=== PATIENT | female | born 1995 | race African-American/Black ===

== ENCOUNTER 2016-09-02 16:38 | Emergency (ER) | payer OTHER ==
--- NOTE | 2016-09-02 19:19 | RAD ---
INDICATION: Right hand injury COMPARISON: None TECHNIQUE: AP, lateral, and oblique views were obtained. FINDINGS: The bony structures, joint spaces, and soft tissues are normal for age. IMPRESSION: NEGATIVE EXAMINATION.
--- NOTE | 2016-09-02 19:22 | ED ---
Upper Extremity Pain - HPI Summary HPI Summary: 21 female presents complaining of right hand/thumb pain after an injury at work yesterday 09/01/16. Patient works at [employer] and states she was lifting a heavy box when she felt something in her hand pop. She tried applying a brace and took one ibuprofen yesterday with some relief. Admits to limited ROM, swelling and bruising. She also tried applying heat with a heating pad that ended up burning her right palmar wrist about 2cm wide and 2cm long. A blister is present. The heat does help with pain. Movement of her right thumb makes the pain worse. No wrist or elbow complaints at this time. Denies numbness/ tingling. Did not fall, hit her head, lose consciousness and does not complain of any neck or back pain. - History of Current Complaint Chief Complaint: EDExtremityUpper Stated Complaint: RT HAND INJURY Time Seen by Provider: 09/02/16 18:21 Hx Obtained From: Patient Mechanism Of Injury: Twisted - while lifting a heavy box of items at work Onset/Duration: Started Days Ago - yesterday 09/01/16 Timing: Constant Severity Initially: Mild Severity Currently: Moderate Pain Location: Hand - thenar eminence, Finger - right thumb Character: Aching, Throbbing Aggravating Factor(s): Movement, Flexion, Extension, Abduction, Adduction Alleviating Factor(s): Rest, Compression, Heat Associated Signs & Symptoms: Positive: Swelling, Bruising Related History: Dominant Hand Right - Allergies/Home Medications Allergies/Adverse Reactions: Allergies Allergy/AdvReac Type Severity Reaction Status Date / Time No Known Allergies Allergy Verified 05/28/12 16:46 PMH/Surg Hx/FS Hx/Imm Hx Endocrine/Hematology History: Denies: Hx Anticoagulant Therapy, Hx Anemia Cardiovascular History: Denies: Other Cardiovascular Problems/Disorders - DENIES Respiratory History: Denies: Other Respiratory Problems/Disorders - DENIES - Surgical History Surgery Procedure, Year, and Place: none Infectious Disease History: No Infectious Disease History: Denies: Traveled Outside the [place] in Last 30 Days - Family History Known Family History: Positive: Diabetes - Social History Occupation: Employed Full-time Alcohol Use: None Substance Use Type: Reports: None Smoking Status (MU): Never Smoked Tobacco Review of Systems Constitutional: Negative Eyes: Negative ENT: Negative Cardiovascular: Negative Respiratory: Negative Gastrointestinal: Negative Positive: Arthralgia, Myalgia, Decreased ROM, Edema - right thenar eminence Positive: Bruising - right thenar eminence Neurological: Negative Psychological: Normal All Other Systems Reviewed And Are Negative: Yes Physical Exam Triage Information Reviewed: Yes Vital Signs On Initial Exam: Initial Vitals Temp Pulse Resp BP Pulse Ox 98.5 F 115 18 153/74 100 09/02/16 17:14 09/02/16 17:14 09/02/16 17:14 09/02/16 17:14 09/02/16 17:14 tachy and elevate blood pressure noted Vital Signs Reviewed: Yes Appearance: Positive: Well-Appearing, No Pain Distress, Well-Nourished Skin: Positive: Warm, Skin Color Reflects Adequate Perfusion - < 2 secon cap refill, Dry Head/Face: Positive: Normal Head/Face Inspection Eyes: Positive: Conjunctiva Clear ENT: Positive: Hearing grossly normal Neck: Positive: Supple, Nontender, No Lymphadenopathy Respiratory/Lung Sounds: Positive: Clear to Auscultation, Breath Sounds Present , Subcutaneous Emphysema Cardiovascular: Positive: RRR, Pulses are Symmetrical in both Upper and Lower Extremities - 2+ radial b/l Abdomen Description: Positive: Nontender Musculoskeletal: Positive: Limited @ - ROM of right thumb due to pain however able to flex, extend and abduct/adduct. no crepitus, step-off or obvious deformity noted. right wrist and digits 2-5 normal. skin and sensation intact., Pain @ - right thenar eminence on palpation, radiating up right thumb, Edema Right - thenar eminence with slight eccymosis Neurological: Positive: Normal, Sensory/Motor Intact, Alert, Oriented to Person Place, Time, CN Intact II-III, Reflexes Intact, NV Bundle Intact Distally, Normal Gait Psychiatric: Positive: Normal Diagnostics - Vital Signs Vital Signs Temp Pulse Resp BP Pulse Ox 09/02/16 17:14 98.5 F 115 18 153/74 100 - Laboratory Lab Statement: Any lab studies that have been ordered have been reviewed, and results considered in the medical decision making process. - Radiology right hand x-ray Xray Interpretation: No Acute Changes - NEGATIVE EXAMINATION. Radiology Interpretation Completed By: Radiologist Course/Dx - Course Course Of Treatment: x-ray was ordered to rule out fracture and was negative. patient will be given ibuprofen to take for pain and inflammation and told to ice and rest the area. out of work. follow-up with PCP or orthopedics for presistant or worsening symptoms. jack bandage applied for pressure and support. already has thumb spica brace she was told she can wear as needed - Diagnoses Differential Diagnosis/HQI/PQRI: Positive: Arthritis, Burn, Contusion, Fracture (Closed), Hematoma, Strain, Sprain Provider Diagnoses: Sprain of hand, thumb, right, Superficial burn of wrist Discharge - Discharge Plan Condition: Stable Disposition: HOME Prescriptions: Ibuprofen TAB* [Motrin TAB* 600 MG] 600 mg PO Q8H PRN #15 tab PRN Reason: Pain Patient Education Materials: Finger Sprain (ED), Tendon Rupture (ED), Superficial Burn (ED) Forms: *Work Release Referrals: [facility] [place] [facility] [place]] Jaymie Marshall MD [Medical Doctor] - Additional Instructions: Take medication as prescribed to help with pain and inflammation. Rest the thumb and ice multiple times daily. Refrain from physical activity that includes using your right hand. Use jack wrap as needed for support. Do not get it wet. Follow-up with orthopedics for further evaluation and imaging. If symptoms worsen and you are unable to feel or move your hand please seek medical attention promptly. Refrain from using heating pad. As for minor burn, use OTC Aloe Vera and cool compresses. Do not pop blister. Let burn heal on its own. Addendum entered and electronically signed by Manasa Brown PA 09/03/16 13: 50: ED Addendum Addendum: patient is not , she is abstinent. vitals were re-checked and back in normal ranges. told to talk to PCP about high blood pressure.
[2016-09-02 20:29] VITALS: BP 159/71
== END 2016-09-02 20:26 | disposition home or self-care (01) ==
LOC: ED 16:38
DX: S63.601A Unspecified sprain of right thumb, initial encounter (principal); X58.XXXA Exposure to other specified factors, initial encounter; Y93.9 Activity, unspecified; Y92.9 Unspecified place or not applicable; Y99.9 Unspecified external cause status; T23.071A Burn of unspecified degree of right wrist, initial encounter; T79.9XXA Unspecified early complication of trauma, initial encounter; X08.8XXA Exposure to other specified smoke, fire and flames, initial encounter
CPT/HCPCS: 99281

== ENCOUNTER 2016-10-22 12:55 | Emergency (ER) | payer MEDICAID ==
[2016-10-22 15:03] VITALS: BP 137/86
--- NOTE | 2016-10-22 15:09 | ED ---
Carl Reyes Erika, scribed for Carlota Whyte MD on 10/22/16 at 1457 . Dizziness - HPI Summary HPI Summary: Patient is a 21-year-old female presenting to the ED with a CC of dizziness. Patient reports that she her left ear felt clogged about 4 weeks ago, and improved after a few days. Patient also notes nasal congestion at that time, which has resolved. A week after that, patient developed a spinning dizziness when she turns her head to the left. Dizziness lasts a few minutes and then resolves. Patient denies other symptoms including dental pain, double vision, difficulty swallowing, speech impairment, and focal neurological deficits. She denies similar symptoms in the past. Hx HTN - has never been on medication. FHx diabetes, HTN. Patient does not have a PCP. She works, lives alone, and does not smoke, drink, or use illicit drugs. - History Of Current Complaint Chief Complaint: EDDizziness Stated Complaint: LT EAR PAIN/DIZZY Time Seen by Provider: 10/22/16 13:43 Hx Obtained From: Patient Onset/Duration: Still Present Timing: Constant - whenever moves head to the left Severity Currently: Moderate Character: Room Spinning Aggravating Factor(s): Change In Head Position - to the left Alleviating Factor(s): Rest Associated Signs And Symptoms: Positive: Negative. Negative: Visual Changes, Inability to Walk, Slurred Speech - Allergies/Home Medications Allergies/Adverse Reactions: Allergies Allergy/AdvReac Type Severity Reaction Status Date / Time No Known Allergies Allergy Verified 10/22/16 13:01 PMH/Surg Hx/FS Hx/Imm Hx Endocrine/Hematology History: Denies: Hx Anticoagulant Therapy, Hx Anemia Cardiovascular History: Reports: Hx Hypertension - No medication Denies: Other Cardiovascular Problems/Disorders - DENIES Respiratory History: Denies: Other Respiratory Problems/Disorders - Surgical History Surgery Procedure, Year, and Place: none Infectious Disease History: No Infectious Disease History: Denies: Traveled Outside the [place] in Last 30 Days - Family History Known Family History: Positive: Hypertension, Diabetes - Social History Occupation: Employed Full-time Lives: Alone Alcohol Use: None Hx Substance Use: No Substance Use Type: Reports: None Hx Tobacco Use: No Smoking Status (MU): Never Smoked Tobacco Review of Systems Negative: Fever Negative: Blurred Vision Negative: Dental Pain Neurological: Other - dizziness Negative: Weakness, Slurred Speech All Other Systems Reviewed And Are Negative: Yes Physical Exam Triage Information Reviewed: Yes Vital Signs On Initial Exam: Initial Vitals Temp Pulse Resp BP Pulse Ox 97.5 F 97 16 155/99 100 10/22/16 12:57 10/22/16 12:57 10/22/16 12:57 10/22/16 12:57 10/22/16 12:57 Vital Signs Reviewed: Yes Appearance: Positive: Well-Appearing, No Pain Distress Skin: Positive: Warm, Skin Color Reflects Adequate Perfusion, Dry Eyes: Positive: EOMI, PEREZ ENT: Positive: Pharynx normal, TMs normal Neck: Positive: Supple, Nontender Respiratory/Lung Sounds: Positive: Clear to Auscultation, Breath Sounds Present. Negative: Rales, Rhonchi, Wheezes Cardiovascular: Positive: RRR, Other - No gallops. Negative: Murmur, Rub Abdomen Description: Positive: Nontender, Soft, Other: - No rebound. Negative: Distended, Guarding Bowel Sounds: Positive: Present Musculoskeletal: Positive: Other - DON. Negative: Edema Left, Edema Right Neurological: Positive: Sensory/Motor Intact, Alert, Oriented to Person Place, Time, Other - CN II-XII intact. Normal finger to nose. No nystagmus. No double vision Psychiatric: Positive: Affect/Mood Appropriate Diagnostics - Vital Signs Vital Signs Temp Pulse Resp BP Pulse Ox 10/22/16 13:01 97.5 F 94 16 156/99 100 10/22/16 12:57 97.5 F 97 16 155/99 100 - Laboratory Lab Statement: Any lab studies that have been ordered have been reviewed, and results considered in the medical decision making process. Dizzy Course/Dx - Course Course Of Treatment: 21 yo with left ear fullness /discomfort for a few days 2- 3 weeks ago that resolved with subsequent vertiginous symptoms that started 1 week ago only when she turns her head to the left side, she does not have hearing loss, difficulty swallowing, no double vision, sxms last a few minutes. Her exam is normal no issue with finger to nose or nystagmus on exam. the plan is to send her home with the diagnosis of vertigo - Diagnoses Provider Diagnoses: Vestibular neuronitis, left ear Discharge - Discharge Plan Condition: Stable Disposition: HOME Prescriptions: Meclizine TAB* [Antivert 12.5 TAB*] 25 mg PO TID PRN #20 tab PRN Reason: Vertigo Patient Education Materials: Labyrinthitis (ED) Referrals: [facility] [place] [facility] [Outside] Additional Instructions: Please follow up regarding your elevated blood pressure today. The documentation as recorded by the Carl avila Erika accurately reflects the service I personally performed and the decisions made by me, Carlota Whyte MD.
== END 2016-10-22 15:02 | disposition home or self-care (01) ==
LOC: ED 12:55
DX: H81.22 Vestibular neuronitis, left ear (principal); R42 Dizziness and giddiness
CPT/HCPCS: 99282

== ENCOUNTER 2017-08-13 12:31 | Emergency (ER) | payer OTHER ==
[2017-08-13 15:26] VITALS: BP 136/73
--- NOTE | 2017-08-13 16:08 | ED ---
Complex/Multi-Sys Presentation - HPI Summary HPI Summary: Patient presents with a multitude of complaints. She states she has been having pain with her periods, but this has been normal since she was young. She states it actually has improved, wanted to get it checked out. She also endorses left-sided chest pain which is worse on palpation. She is concerned over an acute DE as her brother who is 10 years older than her had an DE last year. She states she injured the area approximately a year ago, and it just flared up this morning. She also believes she may be anemic because she gets chills intermittently. She does not have a PCP, but is referred to one recently and has a phone number. She denies any other symptoms today including urinary symptoms, back pain, headache, nasal congestion, nasal pressure or other symptoms. She denies sick contacts. Denies fever, sweats, chills. She has no personal cardiac history, and states only cardiac history with family is brother and mother. - History Of Current Complaint Chief Complaint: EDDizziness Time Seen by Provider: 08/13/17 13:29 Hx Obtained From: Patient Onset/Duration: Gradual Onset Timing: Constant Severity Currently: Mild Severity Initially: Mild - Allergies/Home Medications Allergies/Adverse Reactions: Allergies Allergy/AdvReac Type Severity Reaction Status Date / Time No Known Allergies Allergy Verified 08/13/17 12:34 PMH/Surg Hx/FS Hx/Imm Hx Previously Healthy: Yes Endocrine/Hematology History: Denies: Hx Anticoagulant Therapy, Hx Anemia Cardiovascular History: Reports: Hx Hypertension - No medication Denies: Other Cardiovascular Problems/Disorders - DENIES Respiratory History: Denies: Other Respiratory Problems/Disorders - Surgical History Surgery Procedure, Year, and Place: none - Immunization History Hx Pertussis Vaccination: No Immunizations Up to Date: Unable to Obtain/Confirm Infectious Disease History: No Infectious Disease History: Denies: Traveled Outside the [place] in Last 30 Days - Family History Known Family History: Positive: Hypertension, Diabetes - Social History Occupation: Employed Full-time Lives: With Family Alcohol Use: None Hx Substance Use: No Substance Use Type: Reports: None Hx Tobacco Use: No Smoking Status (MU): Never Smoked Tobacco Review of Systems Constitutional: Negative Positive: Fatigue. Negative: Fever, Chills, Skin Diaphoresis Eyes: Negative Positive: Chest Pain - left anterior wall Respiratory: Negative Genitourinary: Negative Positive: no symptoms reported, see HPI Positive: Myalgia - left anterior wall chest pain Skin: Negative Positive: Weakness - lightheadedness Psychological: Normal All Other Systems Reviewed And Are Negative: Yes Physical Exam Triage Information Reviewed: Yes Vital Signs On Initial Exam: Initial Vitals Temp Pulse Resp BP Pulse Ox 98.4 F 82 16 166/97 100 08/13/17 12:34 08/13/17 12:34 08/13/17 12:34 08/13/17 12:34 08/13/17 12:34 Vital Signs Reviewed: Yes Appearance: Positive: No Pain Distress - Patient appears well, in good spirits and in no acute distress, Well-Nourished Skin: Positive: Skin Color Reflects Adequate Perfusion Head/Face: Positive: Normal Head/Face Inspection Eyes: Positive: EOMI, PEREZ Neck: Positive: No Lymphadenopathy Respiratory/Lung Sounds: Positive: Clear to Auscultation, Breath Sounds Present , Decreased Breath Sounds Musculoskeletal: Positive: Normal, Strength/ROM Intact Neurological: Positive: Sensory/Motor Intact, Alert, Oriented to Person Place, Time Psychiatric: Positive: Normal, Affect/Mood Appropriate AVPU Assessment: Alert Diagnostics - Vital Signs Vital Signs Temp Pulse Resp BP Pulse Ox 08/13/17 15:20 98.6 F 82 18 136/73 100 08/13/17 12:34 98.4 F 82 16 166/97 100 - Laboratory Lab Statement: Any lab studies that have been ordered have been reviewed, and results considered in the medical decision making process. Complex Multi-Symp Course/Dx Course Of Treatment: During the course of treatment, patient is evaluated for them multitude of complaints. EKG obtained and within normal limits. Patient notes to chest pain which is discretely located over the left anterior chest wall. She injured the area approximately one year ago, and thinks it may have flared up. There is pain on light palpation to the area. EKG obtained due to family history, but I believe at this time does not warrant a full cardiac workup. There is no ecchymosis to the left anterior chest wall or other signs of trauma. Discussed menorrhagia. She denies any currently and states it is only present while on her menses. Denies chance of , vaginal bleeding currently or exquisite tenderness in the bilateral lower quadrants. Denies urinary symptoms or back pain. I have discussed the importance of obtaining [id number] ferrous sulfate if she feels she may be anemic. She is given Claritin prescription, because she is currently out and this helps her with her dizziness. I have advised she follow-up with a PCP to get further evaluation and assess for cardiac risk factors. She should be seeing her PCP once per year , and she agrees to this. She is also given an [employer] referral as she does not currently have one. She is okay for discharge at this time and she is encouraged to return for any worsening symptoms. I have asked her if she needs a note for work or anything else for me, and she declines. Patient understands the plan, and voices no concerns at this time. Vital signs are stable throughout the course of treatment. - Diagnoses Provider Diagnoses: Dizziness Discharge - Discharge Plan Condition: Stable Disposition: HOME Prescriptions: Loratadine [Claritin 10 MG CAP] 10 mg PO DAILY #30 cap Patient Education Materials: Lightheadedness (ED) Referrals: Poornima Andrade MD [Medical Doctor] - No Primary Care Phys,NOPCP [Primary Care Provider] - Additional Instructions: Continue to eat and drink to prevent lightheadedness I have given you a prescription for Claritin Take once daily in the morning As discussed, EKG had normal findings on today's visit Please follow-up with your PCP for further evaluation and to evaluate for cardiac risk factors
== END 2017-08-13 15:20 | disposition home or self-care (01) ==
LOC: ED 12:31
DX: R42 Dizziness and giddiness (principal)
CPT/HCPCS: 93005; 99281

== ENCOUNTER 2018-09-16 10:51 | Emergency (ER) | payer OTHER ==
--- NOTE | 2018-09-16 12:22 | ED ---
Upper Extremity Pain - HPI Summary HPI Summary: 23 year old female presents with right hand pain for the past couple days. It happened after she fell onto her right hand. She states that she has numbness and tingling in her right 2-5th finger. no elbow pain. no other injury. she has history of carpel tunnel and states that is feels similar but has not followed up with a provider about such. 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 - History of Current Complaint Chief Complaint: EDExtremityUpper Stated Complaint: RIGHT HAND HEAVY/NUMBNESS Time Seen by Provider: 09/16/18 11:47 - Allergies/Home Medications Allergies/Adverse Reactions: Allergies Allergy/AdvReac Type Severity Reaction Status Date / Time No Known Allergies Allergy Verified 09/16/18 11:04 Home Medications: Home Medications Sertraline HCl [Zoloft] 25 mg PO DAILY 09/16/18 [History Confirmed 09/16/18] PMH/Surg Hx/FS Hx/Imm Hx Endocrine/Hematology History: Denies: Hx Anticoagulant Therapy, Hx Anemia Cardiovascular History: Reports: Hx Hypertension - No medication Denies: Other Cardiovascular Problems/Disorders - DENIES Respiratory History: Denies: Other Respiratory Problems/Disorders - Surgical History Surgery Procedure, Year, and Place: none Infectious Disease History: No Infectious Disease History: Denies: Traveled Outside the [place] in Last 30 Days - Family History Known Family History: Positive: Hypertension, Diabetes - Social History Alcohol Use: None Hx Substance Use: No Substance Use Type: Reports: None Hx Tobacco Use: No Smoking Status (MU): Never Smoked Tobacco Review of Systems Negative: Fever Negative: Chest Pain Negative: Shortness Of Breath Positive: Myalgia - right hand pain All Other Systems Reviewed And Are Negative: Yes Physical Exam Triage Information Reviewed: Yes Vital Signs On Initial Exam: Initial Vitals Temp Pulse Resp BP Pulse Ox 98.7 F 94 14 172/85 98 09/16/18 11:04 09/16/18 11:04 09/16/18 11:04 09/16/18 11:04 09/16/18 11:04 Vital Signs Reviewed: Yes Appearance: Positive: Well-Appearing Skin: Positive: Warm, Dry Head/Face: Positive: Normal Head/Face Inspection Eyes: Positive: Normal, Conjunctiva Clear ENT: Positive: Pharynx normal Respiratory/Lung Sounds: Positive: Clear to Auscultation, Breath Sounds Present Cardiovascular: Positive: Normal, RRR Musculoskeletal: Positive: Strength/ROM Intact - right hand, Other - tenderness palm of right hand, sensation grossly intact right hand, capillary refill<2secs Neurological: Positive: Normal Psychiatric: Positive: Normal Diagnostics - Vital Signs Vital Signs Temp Pulse Resp BP Pulse Ox 09/16/18 11:04 98.7 F 94 14 172/85 98 - Laboratory Lab Statement: Any lab studies that have been ordered have been reviewed, and results considered in the medical decision making process. - Radiology hand Radiology Interpretation Completed By: Radiologist Summary of Radiographic Findings: IMPRESSION: Normal right hand radiograph. Course/Dx - Course Course Of Treatment: 23 year old female presents with right hand pain for the past couple days. It happened after she fell onto her right hand. She states that she has numbness and tingling in her right 2-5th finger. no elbow pain. no other injury. she has history of carpel tunnel and states that is feels similar. 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 on exam has tenderness right palm. neurovascular intact. 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 xray shows no acute findings. discussed likely due to fall has some inflammation over the median nerve causing numbness or tingling. neg tinels. will treat as a carpel tunnel type pain with conservative treatment. told if no improvement to follow up with ortho. patient understand and agrees with plan. - Diagnoses Differential Diagnosis/HQI/PQRI: Positive: Fracture (Closed), Strain, Other - carpel tunnel Provider Diagnoses: Right hand pain Discharge - Sign-Out/Discharge Documenting (check all that apply): Patient Departure Patient Received Moderate/Deep Sedation with Procedure: No - Discharge Plan Condition: Good Disposition: HOME Patient Education Materials: Wrist Sprain (ED) Forms: *Work Release Referrals: Corwin Mcgee MD [Medical Doctor] - Uriel Mccray MD [Primary Care Provider] - Additional Instructions: use splint on hand as needed ice, elevate Take Tylenol or ibuprofen every 6 hours for pain follow up with ortho if no improvement Return to ED if develop any new or worsening symptoms - Billing Disposition and Condition Condition: GOOD Disposition: Home
[2018-09-16 13:23] VITALS: BP 145/102
== END 2018-09-16 13:22 | disposition home or self-care (01) ==
LOC: ED 10:51
DX: M79.641 Pain in right hand (principal)
CPT/HCPCS: 99282

== ENCOUNTER 2018-11-27 11:44 | Emergency (ER) | payer OTHER ==
[2018-11-27] MEDS ORDERED: Tetan/Diph/Pertus SYR(Tdap)* 0.5 ML SYR(BOOSTRIX) use SYR IM ONE (12:13)
[2018-11-27] MEDS ORDERED: Ibuprofen TAB* 600 MG PO ONE (12:30)
--- NOTE | 2018-11-27 12:42 | ED ---
Laceration/Wound HPI - HPI Summary HPI Summary: Patient is a 23yo F presenting to the ED with L pinky laceration to the lateral side which occurred just prior to arrival at work. 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 The area is approximately 2 cm in length and very superficial. No need for sutures. Patient states her tetanus is not up to date. She is very anxious on arrival. She is also concerned over her high blood pressure and would like to speak with someone about getting a primary care provider to further evaluate this. - History of Current Complaint Stated Complaint: FINGER LAC PER PT Time Seen by Provider: 11/27/18 11:59 Hx Obtained From: Patient Mechanism of Injury: Sharp/Blunt Trauma Onset/Duration: Sudden Onset Aggravating: Movement Alleviating: Compression Timing: Constant Onset Severity: Mild Current Severity: Mild Pain Intensity: 8 Pain Scale Used: 0-10 Numeric Associated Signs & Symptoms: Negative - Allergy/Home Medications Allergies/Adverse Reactions: Allergies Allergy/AdvReac Type Severity Reaction Status Date / Time No Known Allergies Allergy Verified 09/16/18 11:04 Home Medications: Home Medications Sertraline HCl [Zoloft] 100 mg PO DAILY 11/27/18 [History Confirmed 11/27/18] PMH/Surg Hx/FS Hx/Imm Hx Previously Healthy: Yes Endocrine/Hematology History: Denies: Hx Anticoagulant Therapy, Hx Anemia Cardiovascular History: Reports: Hx Hypertension - No medication Denies: Other Cardiovascular Problems/Disorders - DENIES Respiratory History: Denies: Other Respiratory Problems/Disorders - Surgical History Surgery Procedure, Year, and Place: none - Immunization History Hx Pertussis Vaccination: No Immunizations Up to Date: Yes Infectious Disease History: No Infectious Disease History: Denies: Traveled Outside the [place] in Last 30 Days - Family History Known Family History: Positive: Hypertension, Diabetes - Social History Occupation: Employed Full-time Lives: With Family Alcohol Use: Rare Hx Substance Use: No Substance Use Type: Reports: None Hx Tobacco Use: No Smoking Status (MU): Never Smoked Tobacco Review of Systems Constitutional: Negative Negative: Fever, Chills, Skin Diaphoresis Negative: Palpitations, Chest Pain Negative: Shortness Of Breath, Cough Genitourinary: Negative Positive: no symptoms reported, see HPI Negative: Arthralgia, Myalgia Positive: Other - laceration Positive: Anxious All Other Systems Reviewed And Are Negative: Yes Physical Exam Triage Information Reviewed: Yes Vital Signs On Initial Exam: Initial Vitals Temp Pulse Resp BP Pulse Ox 97.7 F 94 16 159/99 98 11/27/18 11:46 11/27/18 11:46 11/27/18 11:46 11/27/18 11:46 11/27/18 11:46 Vital Signs Reviewed: Yes Appearance: Positive: Well-Appearing, Well-Nourished Skin: Positive: Warm, Skin Color Reflects Adequate Perfusion, Other - 2cm laceration - superifical to the lateral L little finger Eyes: Positive: EOMI, PEREZ, Conjunctiva Clear Neck: Positive: Supple, Nontender, No Lymphadenopathy Respiratory/Lung Sounds: Positive: Clear to Auscultation, Breath Sounds Present Cardiovascular: Positive: RRR, Pulses are Symmetrical in both Upper and Lower Extremities Musculoskeletal: Positive: Strength/ROM Intact Neurological: Positive: Speech Normal Psychiatric: Positive: Affect/Mood Appropriate Diagnostics - Vital Signs Vital Signs Temp Pulse Resp BP Pulse Ox 11/27/18 11:46 97.7 F 94 16 159/99 98 - Laboratory Lab Statement: Any lab studies that have been ordered have been reviewed, and results considered in the medical decision making process. Laceration Repair Course/Dx - Course Course Of Treatment: During his course of treatment, the patient's evaluated for left pinky laceration which is superficial. Antibiotic ointment applied and gauze wrapped. Tetanus booster updated today. She is given information for [facility]. - Clinical Impression Provider Diagnoses: Laceration Discharge - Sign-Out/Discharge Documenting (check all that apply): Patient Departure Patient Received Moderate/Deep Sedation with Procedure: No - Discharge Plan Condition: Stable Disposition: HOME Patient Education Materials: Laceration (ED) Referrals: Care [facility] [Outside] No Primary Care Phys,NOPCP [Primary Care Provider] - Additional Instructions: Cleanse wound thoroughly daily starting tomorrow Follow up with your PCP regarding high blood pressure and anxiety I have given you information regarding care [facility] - Billing Disposition and Condition Condition: STABLE Disposition: Home
[2018-11-27 12:48] VITALS: BP 141/87
== END 2018-11-27 12:48 | disposition home or self-care (01) ==
LOC: ED 11:44
DX: S61.217A Laceration without foreign body of left little finger without damage to nail, initial encounter (principal); W26.8XXA Contact with other sharp object(s), not elsewhere classified, initial encounter; Y93.G1 Activity, food preparation and clean up; Y92.512 Supermarket, store or market as the place of occurrence of the external cause
CPT/HCPCS: 90471; 90715; 99281; A9270-GY

== ENCOUNTER 2018-12-15 08:34 | Emergency (ER) | payer OTHER ==
--- NOTE | 2018-12-15 08:51 | ED ---
Throat Pain/Nasal Congestion - HPI Summary HPI Summary: This pt is a 23 y/[facility]" for the past few days. Pt reports she has a sore throat, nasal congestion, runny nose, and cough. She describes a productive cough with "a lot" of sputum. Denies fever, chest pain, vomiting. LMP: last month. She states she is expecting her menstrual cycle soon. Denies chance of . - History of Current Complaint Chief Complaint: EDUpperRespComplaint Time Seen by Provider: 12/15/18 08:46 Hx Obtained From: Patient Onset/Duration: Gradual Onset, Lasting Days, Still Present Severity: Moderate Associated Signs And Symptoms: Positive: Nasal Discharge Cough: Productive - Allergies/Home Medications Allergies/Adverse Reactions: Allergies Allergy/AdvReac Type Severity Reaction Status Date / Time cat dander Allergy Eyes Verified 12/15/18 08:40 Itchy/Swollen/Red/Watery dog dander Allergy Eyes Verified 12/15/18 08:40 Itchy/Swollen/Red/Watery PMH/Surg Hx/FS Hx/Imm Hx Endocrine/Hematology History: Denies: Hx Anticoagulant Therapy, Hx Anemia Cardiovascular History: Reports: Hx Hypertension - No medication Denies: Other Cardiovascular Problems/Disorders - DENIES Respiratory History: Denies: Other Respiratory Problems/Disorders - Surgical History Surgery Procedure, Year, and Place: none Infectious Disease History: No Infectious Disease History: Denies: Traveled Outside the [place] in Last 30 Days - Family History Known Family History: Positive: Hypertension, Diabetes - Social History Alcohol Use: Rare Hx Substance Use: No Substance Use Type: Reports: None Hx Tobacco Use: No Smoking Status (MU): Never Smoked Tobacco Review of Systems Negative: Fever ENT: Other - POS: nasal congestion Positive: Sore Throat, Nasal Discharge Negative: Chest Pain Positive: Cough Negative: Vomiting All Other Systems Reviewed And Are Negative: Yes Physical Exam - Summary Physical Exam Summary: VITAL SIGNS: Reviewed. GENERAL: Patient is a well-developed and nourished female who is lying comfortable in the stretcher. Patient is not in any acute respiratory distress. HEAD AND FACE: No signs of trauma. No ecchymosis, hematomas or skull depressions. No sinus tenderness. EYES: PERRLA, EOMI x 2, No injected conjunctiva, no nystagmus. EARS: Hearing grossly intact. Ear canals and tympanic membranes are within normal limits. MOUTH: Oropharynx within normal limits. NECK: Supple, trachea is midline, no adenopathy, no JVD, no carotid bruit, no c- spine tenderness, neck with full ROM. CHEST: Symmetric, no tenderness at palpation LUNGS: Clear to auscultation bilaterally. No wheezing or crackles. CVS: Regular rate and rhythm, S1 and S2 present, no murmurs or gallops appreciated. ABDOMEN: Soft, non-tender. No signs of distention. No rebound no guarding, and no masses palpated. Bowel sounds are normal. EXTREMITIES: FROM in all major joints, no edema, no cyanosis or clubbing. NEURO: Alert and oriented x 3. No acute neurological deficits. Speech is normal and follows commands. SKIN: Dry and warm Triage Information Reviewed: Yes Vital Signs On Initial Exam: Initial Vitals Temp Pulse Resp BP Pulse Ox 97.5 F 103 20 157/93 99 12/15/18 08:35 12/15/18 08:35 12/15/18 08:35 12/15/18 08:35 12/15/18 08:35 Vital Signs Reviewed: Yes Diagnostics - Vital Signs Vital Signs Temp Pulse Resp BP Pulse Ox 12/15/18 08:35 97.5 F 103 20 157/93 99 - Laboratory Lab Statement: Any lab studies that have been ordered have been reviewed, and results considered in the medical decision making process. - Radiology Chest XR Radiology Interpretation Completed By: Radiologist Summary of Radiographic Findings: IMPRESSION: No radiographic evidence of acute cardiopulmonary disease. Dr. Carranza has reviewed this report. Re-Evaluation - Re-Evaluation First Eval Re-Evaluation Time: 10:35 Comment: Reviewed all results with pt. She will be discharged home. EENT Course/Dx - Course Assessment/Plan: This pt is a 23 y/o female presenting to [facility] c/o a "head cold " for the past few days. Pt reports she has a sore throat, nasal congestion, runny nose, and cough. She describes a productive cough with "a lot" of sputum. Denies fever, chest pain, vomiting. LMP: last month. She is expecting her menstrual cycle. Denies chance of . Chest x-ray impression: No radiographically evidence of acute cardiopulmonary disease. Rapid strep is negative. She reports that shes been having right wrist pain. It seems that she may develop carpal tunnel syndrome. Therefore the patient will be taking ibuprofen and she will be wearing a wrist splint. I discussed all the findings and test results with the patient. Patient was instructed to return to the emergency room immediately if any of the symptoms return worsens. Plan of care was discussed with the patient and understands and agrees. All questions were answered at patient satisfaction. There were no further complaints or concerns. Lung exam before discharge: CTA B/L. Good air exchange. No wheezing or crackles heard. CVS: S1 and S2 present. No murmurs appreciated. Patient is alert and oriented x 3. Patient is hemodynamically stable. Patient will be discharged home with follow up from her PCP in the next 2-3 days. - Diagnoses Provider Diagnoses: URI (upper respiratory infection), Wrist pain Discharge - Sign-Out/Discharge Documenting (check all that apply): Patient Departure - Discharge home Patient Received Moderate/Deep Sedation with Procedure: No - Discharge Plan Condition: Stable Disposition: HOME Prescriptions: Benzonatate CAP* [Tessalon 100 MG CAP*] 100 mg PO TID PRN #12 cap PRN Reason: Cough Patient Education Materials: Upper Respiratory Infection (ED), Arthralgia (ED) [facility]errals: [facility] [Outside] [facility] [Outside] Additional Instructions: FOLLOW UP WITH YOUR PRIMARY CARE PROVIDER WITHIN ONE WEEK FOR HIGH BLOOD PRESSURE NOTED TODAY. RETURN TO THE EMERGENCY DEPARTMENT FOR ANY WORSENING OR NEW SYMPTOMS. - Billing Disposition and Condition Condition: STABLE Disposition: Home - Attestation Statements Document Initiated by Tia: Yes Documenting Scribe: Madeleine Darling Provider For Whom Tia is Documenting (Include Credential): Arnie Carranza MD Scribe Attestation: Madeleine Reyes, scribed for Arnie Carranza MD on 12/16/18 at 1823. Scribe Documentation Reviewed: Yes Provider Attestation: The documentation as recorded by the Madeleine avila accurately reflects the service I personally performed and the decisions made by me, Arnie Carranza MD Status of Scribe Document: Viewed
[2018-12-15 09:52] LABS: Rapid Strep Molecular Negative (Negative)
[2018-12-15 12:00] VITALS: BP 145/84
== END 2018-12-15 11:10 | disposition home or self-care (01) ==
LOC: ED 08:34
DX: J06.9 Acute upper respiratory infection, unspecified (principal); M25.531 Pain in right wrist; I10 Essential (primary) hypertension
CPT/HCPCS: 71046; 87651; 99282

== ENCOUNTER 2019-06-01 10:31 | Emergency (ER) | payer OTHER ==
[2019-06-01] MEDS ORDERED: guaiFENesin LIQ* 100 MG/5 ML UDC PO ONE (10:46)
[2019-06-01] MEDS ORDERED: Saline NASAL SPRAY 0.65%* BTL BOTH NARES ONE (10:46)
--- NOTE | 2019-06-01 10:56 | ED ---
Throat Pain/Nasal Congestion - HPI Summary HPI Summary: This patient is a 24-year-old female presenting to the ED with nasal drainage, cough, congestion 3 days. Denies any fevers, sweats, chills. Denies any weakness or fatigue. She states she thinks she has a "really bad cold." She endorses body aches throughout which are severe in nature. She rates Veazey 8/ 10. Denies any sick contacts, recent illnesses otherwise and immunizations are up-to-date. She did not receive a flu vaccine this year. He does endorse mild bilateral ear pain, throat pain, worse with cough. - History of Current Complaint Chief Complaint: EDUpperRespComplaint Time Seen by Provider: 06/01/19 10:38 Hx Obtained From: Patient Onset/Duration: Gradual Onset Associated Signs And Symptoms: Negative: Dysphagia, FB Sensation - Epiglottits Risk Factors Epiglottis Risk Factors: Negative - Allergies/Home Medications Allergies/Adverse Reactions: Allergies Allergy/AdvReac Type Severity Reaction Status Date / Time cat dander Allergy Eyes Verified 06/01/19 10:41 Itchy/Swollen/Red/Watery dog dander Allergy Eyes Verified 06/01/19 10:41 Itchy/Swollen/Red/Watery PMH/Surg Hx/FS Hx/Imm Hx Previously Healthy: Yes Endocrine/Hematology History: Denies: Hx Anticoagulant Therapy, Hx Anemia Cardiovascular History: Reports: Hx Hypertension - No medication Denies: Other Cardiovascular Problems/Disorders - DENIES Respiratory History: Denies: Other Respiratory Problems/Disorders - Surgical History Surgery Procedure, Year, and Place: none - Immunization History Hx Pertussis Vaccination: No Immunizations Up to Date: Yes Infectious Disease History: No Infectious Disease History: Denies: Traveled Outside the [place] in Last 30 Days - Family History Known Family History: Positive: Hypertension, Diabetes - Social History Occupation: Employed Full-time Lives: With Family Alcohol Use: Rare Hx Substance Use: No Substance Use Type: Reports: None Hx Tobacco Use: No Smoking Status (MU): Never Smoked Tobacco Review of Systems Negative: Fever, Chills, Fatigue, Skin Diaphoresis Positive: Nasal Discharge Negative: Palpitations, Chest Pain Positive: Cough. Negative: Shortness Of Breath Genitourinary: Negative Positive: no symptoms reported, see HPI Negative: Arthralgia, Myalgia Skin: Negative Neurological: Negative All Other Systems Reviewed And Are Negative: Yes Physical Exam Triage Information Reviewed: Yes Vital Signs On Initial Exam: Initial Vitals Temp Pulse Resp BP Pulse Ox 98.5 F 111 19 157/92 98 06/01/19 10:32 06/01/19 10:32 06/01/19 10:32 06/01/19 10:32 06/01/19 10:32 Vital Signs Reviewed: Yes Appearance: Positive: Well-Appearing, Well-Nourished Skin: Positive: Warm, Skin Color Reflects Adequate Perfusion Head/Face: Positive: Normal Head/Face Inspection Eyes: Positive: EOMI, PEREZ, Conjunctiva Clear Neck: Positive: Supple, No Lymphadenopathy Respiratory/Lung Sounds: Positive: Clear to Auscultation, Breath Sounds Present Cardiovascular: Positive: RRR, Pulses are Symmetrical in both Upper and Lower Extremities Musculoskeletal: Positive: Normal, Strength/ROM Intact Neurological: Positive: Speech Normal Psychiatric: Positive: Normal, Affect/Mood Appropriate AVPU Assessment: Alert Procedures - Sedation Patient Received Moderate/Deep Sedation with Procedure: No Diagnostics - Vital Signs Vital Signs Temp Pulse Resp BP Pulse Ox 06/01/19 10:32 98.5 F 111 19 157/92 98 - Laboratory Lab Statement: Any lab studies that have been ordered have been reviewed, and results considered in the medical decision making process. EENT Course/Dx - Course Course Of Treatment: During this course of treatment, the patient's evaluated for symptoms of an upper respiratory infection. Patient is endorsing cough and nasal drainage. She denies any fevers, sweats, chills. She denies any shortness of breath or chest pain. Denies any maxillary sinus tenderness. Lungs CTA, RRR, no maxillary sinus tenderness on physical examination. TMs without erythema, positive cone of light. No pharyngeal erythema with bilateral tonsillar swelling or exudates noted. Denies any difficulty with swallowing. Influenza and strep swab obtained, both of which are negative. Patient was given nasal saline spray and guaifenesin in the ED with some relief. She will be discharged with diagnosis of upper respiratory infection and cough. She is given Tessalon and Flonase as prescription. - Differential Diagnoses Differential Diagnoses: URI/Bronchitis - Diagnoses Provider Diagnoses: Upper respiratory infection, Cough Discharge ED - Sign-Out/Discharge Documenting (check all that apply): Patient Departure - Discharge Plan Condition: Stable Disposition: HOME Prescriptions: Benzonatate CAP* [Tessalon CAP*] 100 mg PO TID #21 cap Fluticasone NASAL SPRAY 50MCG* [Flonase NASAL SPRAY 50MCG*] 2 spray BOTH NARES DAILY #1 btl Patient Education Materials: Benzonatate (By mouth), Upper Respiratory Infection (ED) Referrals: No Primary Care Phys,NOPCP [Primary Care Provider] - Additional Instructions: Strep and flu are negative today Humidifier in the home will help Flonase 2 sprays as needed for congestion Cough syrup over the counter - use as directed Tessalon three times daily as needed for cough Drink plenty of water Symptoms of a viral cold will typically last 1-2 weeks If you develop any fevers with cough, please follow up with your PCP or return to the ED - Billing Disposition and Condition Condition: STABLE Disposition: Home
[2019-06-01 11:06] LABS: Rapid Strep Molecular Negative (Negative)
[2019-06-01 11:12] LABS: Influenza A Molecular NEGATIVE (Negative); Influenza B Molecular NEGATIVE (Negative)
[2019-06-01 11:58] VITALS: BP 154/97
== END 2019-06-01 11:55 | disposition home or self-care (01) ==
LOC: ED 10:31
DX: J06.9 Acute upper respiratory infection, unspecified (principal); R05 Cough; I10 Essential (primary) hypertension
CPT/HCPCS: 87651; 99282; A9270-GY